=== PATIENT | female | born 1950 | race Caucasian/White ===

== ENCOUNTER 2017-01-01 13:25 | Inpatient (IN) | payer MEDICARE ==
[~2017-01-01 13:25] MED LIST: ACETAMINOPHEN500 MG PO; ATORVASTATIN CA20 MG PO; AZITHROMYCIN250 MG PO; CLARITIN-D 121 EAC1 PO; CLOTRIMAZOLE10 M1 MM; COLACE100 M1 PO; COZAAR25 M1 PO; EXTRA STRENGTH500 M1 PO; FEMARA2.5 M1 PO; FENOFIBRATE134 M1 PO; FERROUS SULFAT325 MG PO; GLIPIZIDE ER2.5 MG PO; IMODIUM A-D2 M3 PO; LEVOTHYROXINE100 MC1 PO; LEVOTHYROXINE125 MCG PO; LIPITOR20 M1 PO; LOVENOX60 MG/0.1 SC; NORCO 5-325 TA1 EACH PO; NORCO 5/3251 TA1 PO; OMEPRAZOLE20 M3 PO; POTASSIUM CHLO10 ME2 PO; TRILIPIX135 MG PO; VITAMIN D31000 UNI4 PO
[2017-01-01] MEDS ORDERED: POTASSIUM CHLO20 ME3 PO (14:57)
[2017-01-01] MEDS ORDERED: XARELTO10 M1 PO (14:57)
[2017-01-01] MEDS ORDERED: MAGIC MOUTHWASH SSP (15:10)
[2017-01-01] MEDS ORDERED: HUMALOG100 UNIT/2 SC (15:12)
[2017-01-01] MEDS ORDERED: HUMULIN N100 UNIT/2 SC (15:13)
[2017-01-01 22:22] LABS: CREATININE 0.53 mg/dl (0.67-1.17); eGFR VALUE FOR BLACK >90 mL/Min
[2017-01-01 22:27] LABS: HCT-HEMATOCRIT 28.6 % (34.0-49.0); HGB-HEMOGLOBIN 9.4 gm/dl (12.0-15.5); MCH (MEAN CORPUSCULAR HGB) 30.6 pg (28.0-32.0); MCHC MEAN CORPUSCULAR HGB CONC 32.9 % (32.0-36.0); MCV (MEAN CELL VOLUME) 93.2 fl (82.0-96.0); MEAN PLATELET VOLUME 8.9 cmc (9.4-12.4); NEUTROPHIL-AUTOMATED 3.6 tho/cmm (1.6-8.0); PLATELET COUNT 142 tho/cmm (150-450); RED BLOOD COUNT 3.07 mil/cmm (4.00-5.20); RED CELL DISTRIBUTION WIDTH 15.6 % (12.4-16.4); WHITE BLOOD COUNT 5.9 tho/cmm (4.0-10.0)
[2017-01-01 22:40] LABS: BLOOD UREA NITROGEN 11 mg/dl (6-24); CALCIUM 7.5 mg/dl (8.5-10.5); CARBON DIOXIDE-VENOUS 28 mmol/L (22-32); CHLORIDE 98 mmol/l (96-110); GLUCOSE 130 mg/dL (70-110); SODIUM 135 mmol/L (135-145)
[2017-01-01 22:59] LABS: ANION GAP 12 mmol/L (0-20)
[2017-01-01 23:03] LABS: POTASSIUM 2.9 mmol/L (3.7-5.1)
[2017-01-01 23:04] LABS: BAND % 20 % (0-20); BAND ABSOLUTE COUNT 1.2 tho/cmm (0-2.0); EOSINOPHIL % 1 % (0-7)
[2017-01-01 23:05] LABS: WBC MORPHOLOGY DOHLE BODIES
[2017-01-02 12:11] LABS: HCT-HEMATOCRIT 27.9 % (34.0-49.0); HGB-HEMOGLOBIN 9.1 gm/dl (12.0-15.5); MCH (MEAN CORPUSCULAR HGB) 30.5 pg (28.0-32.0); MCHC MEAN CORPUSCULAR HGB CONC 32.6 % (32.0-36.0); MCV (MEAN CELL VOLUME) 93.6 fl (82.0-96.0); MEAN PLATELET VOLUME 8.9 cmc (9.4-12.4); NEUTROPHIL-AUTOMATED 5.8 tho/cmm (1.6-8.0); PLATELET COUNT 142 tho/cmm (150-450); RED BLOOD COUNT 2.98 mil/cmm (4.00-5.20); RED CELL DISTRIBUTION WIDTH 15.7 % (12.4-16.4); WHITE BLOOD COUNT 8.3 tho/cmm (4.0-10.0)
[2017-01-02 12:15] LABS: BASO % 0.6 % (0-2); BASO ABSOLUTE COUNT 0.1 tho/cmm (0.0-0.2); EOSINOPHIL ABSOLUTE COUNT 0.1 tho/cmm (0.0-0.7); IMMATURE GRANULOCYTES ABSOLUTE 0.67 tho/cmm (0-0.03); IMMATURE GRANULOCYTES PERCENT 8.1 % (0-0.3); LYMPH % 9.8 % (20-45); LYMPH ABSOLUTE COUNT 0.8 tho/cmm (0.8-4.5); MONO % 10.9 % (0-12); MONOCYTE ABSOLUTE COUNT 0.9 tho/cmm (0.0-1.2); NEUTROPHIL ABSOLUTE COUNT 5.8 tho/cmm (1.6-8.0); NEUTROPHILS % 69.6 % (40-80)
[2017-01-02 12:20] LABS: ANION GAP 13 mmol/L (0-20); BLOOD UREA NITROGEN 13 mg/dl (6-24); CALCIUM 7.4 mg/dl (8.5-10.5); CARBON DIOXIDE-VENOUS 29 mmol/L (22-32); CHLORIDE 99 mmol/l (96-110); GLUCOSE 142 mg/dL (70-110); POTASSIUM 3.5 mmol/L (3.7-5.1); SODIUM 137 mmol/L (135-145); eGFR VALUE FOR BLACK >90 mL/Min
[2017-01-03 13:34] LABS: C-REACTIVE PROTEIN 11.6 mg/dl (0-0.9)
[2017-01-07] MEDS ORDERED: CALCIUM CARBON500 M2 PO (12:29)
== END 2017-01-07 14:10 | DRG 536 ==
LOC: EDMED 13:25 → EMR2 16:08 → CAR1 17:28 → 5WF 01-04 16:49
PROVIDERS: Family Medicine; ADMIT Hospitalist
DX: S32.512A Fracture of superior rim of left pubis, initial encounter for closed fracture (principal); C25.9 Malignant neoplasm of pancreas, unspecified; C79.51 Secondary malignant neoplasm of bone; D64.81 Anemia due to antineoplastic chemotherapy; E55.9 Vitamin D deficiency, unspecified; D50.9 Iron deficiency anemia, unspecified; E11.9 Type 2 diabetes mellitus without complications; E03.9 Hypothyroidism, unspecified; E78.5 Hyperlipidemia, unspecified; M21.379 Foot drop, unspecified foot; G62.0 Drug-induced polyneuropathy; T45.1X5A Adverse effect of antineoplastic and immunosuppressive drugs, initial encounter; M81.0 Age-related osteoporosis without current pathological fracture; B34.8 Other viral infections of unspecified site; Z79.01 Long term (current) use of anticoagulants; Z86.711 Personal history of pulmonary embolism; Z85.3 Personal history of malignant neoplasm of breast; Z51.5 Encounter for palliative care; Z79.4 Long term (current) use of insulin; Z85.850 Personal history of malignant neoplasm of thyroid; W01.0XXA Fall on same level from slipping, tripping and stumbling without subsequent striking against object, initial encounter
CPT/HCPCS: A9503; A9577; J0461; J0610; J0640; J1100; J1453; J1815; J2469; J2505; J7040; J7050; J9190; J9206